=== PATIENT | male | born 1995 | race Caucasian/White ===

== ENCOUNTER 2018-09-04 05:41 | Day surgery (SDC) | payer BC ==
[~2018-09-04] VITALS: Ht 177.8 cm; Wt 90.9 kg
[2018-09-04 06:17] VITALS: BP 132/79
[2018-09-04] MEDS ORDERED: OXYC-302 PO (06:28)
[2018-09-04] MEDS ORDERED: LACTATED RINGERS 1,000 ML IV SCH (06:28)
[2018-09-04] MEDS ORDERED: FENTANYL PF 100 MCG/2ML ONE ×3 (06:46→08:31)
[2018-09-04] MEDS ORDERED: MIDAZOLAM 1 MG/ML, 2ML ONE ×2 (06:46→08:31)
[2018-09-04] MEDS ORDERED: BUPIVACAINE/PF 0.5% ONE (06:50)
[2018-09-04] MEDS ORDERED: PROPOFOL 10 MG/ML, 20ML ONE (06:52)
[2018-09-04] MEDS ORDERED: ROCURONIUM 10 MG/ML,10ML ONE (06:56)
[2018-09-04] MEDS ORDERED: KETOROLAC 30 MG/1 ML ONE (06:56)
[2018-09-04] MEDS ORDERED: SUCCINYLCHOLINE 20 MG/ML, 10ML ONE (06:56)
[2018-09-04] MEDS ORDERED: CEFAZOLIN 1,000 MG ONE ×3 (06:56→07:15)
[2018-09-04] MEDS ORDERED: DEXAMETHASONE 4 MG/ML, 1ML ONE ×2 (07:15)
[2018-09-04] MEDS ORDERED: ONDANSETRON 2MG/ML, 2ML ONE (07:15)
[2018-09-04] MEDS ORDERED: hydrALAzine 20 MG/ML, 1ML IV PRN (07:30)
[2018-09-04] MEDS ORDERED: LORazepam 2 MG/ML, 1ML IVPush PRN (07:30)
[2018-09-04] MEDS ORDERED: ONDANSETRON ODT 8 MG PO PRN (07:30)
[2018-09-04] MEDS ORDERED: FENTANYL PF 100 MCG/2ML IV PRN (07:30)
[2018-09-04] MEDS ORDERED: ACETAMINOPHEN 325 MG TABLET PO PRN (07:30)
[2018-09-04] MEDS ORDERED: MORPHINE SULFATE 4 MG/ML, 1ML IVPush PRN (07:30)
[2018-09-04] MEDS ORDERED: ALBUTEROL SULFATE 2.5 MG/3 ML NPPB PRN (07:30)
[2018-09-04] MEDS ORDERED: MIDAZOLAM 1 MG/ML, 2ML IV PRN (07:30)
[2018-09-04] MEDS ORDERED: OXYcodone 5 MG/5 ML ORAL.SOL UDC PO PRN (07:30)
[2018-09-04] MEDS ORDERED: PROMETHAZINE 25 MG/ML, 1ML IV PRN (07:30)
[2018-09-04] MEDS ORDERED: HYDROmorphone 1 MG/ML, 1ML IV PRN (07:30)
[2018-09-04] MEDS ORDERED: ONDANSETRON 2MG/ML, 2ML IV PRN (07:30)
[2018-09-04] MEDS ORDERED: PROMETHAZINE 12.5 MG SUPP PR PRN (07:30)
[2018-09-04] MEDS ORDERED: EPHEDRINE 50 MG/ML, 1ML IVPush PRN (07:30)
[2018-09-04] MEDS ORDERED: HALOPERIDOL 5 MG/ML IV PRN (07:30)
[2018-09-04] MEDS ORDERED: MEPERIDINE/PF 25MG/0.5ML IVPush PRN (07:30)
[2018-09-04] MEDS ORDERED: LABETALOL 5MG/ML, 20ML IV PRN (07:30)
[2018-09-04] MEDS ORDERED: BUPIVACAINE/PF 0.5% INFIL ONE ×2 (07:34→08:11)
[2018-09-04] MEDS ORDERED: OXYcodone 5 MG/5 ML ORAL.SOL UDC ONE (08:31)
== END 2018-09-04 10:50 | disposition home or self-care (01) ==
LOC: OUT 05:41
PROVIDERS: ATTEND Orthopaedic Surgery
DX: S62.511A Displaced fracture of proximal phalanx of right thumb, initial encounter for closed fracture (principal); S62.201A Unspecified fracture of first metacarpal bone, right hand, initial encounter for closed fracture; X58.XXXA Exposure to other specified factors, initial encounter; Y93.89 Activity, other specified; Y92.89 Other specified places as the place of occurrence of the external cause; Y99.8 Other external cause status; Z88.0 Allergy status to penicillin
CPT/HCPCS: 26608; 26735; 73140; 76000; C1713; J0330; J0690; J1100; J1885; J2405; J2704; J3010; J3490; J7120; J2250